=== PATIENT | male | born 1975 | race African-American/Black ===

== ENCOUNTER 2020-03-13 10:50 | Inpatient (IN) | payer OTHER ==
[~2020-03-13] VITALS: Ht 190.5 cm; Wt 113.4 kg
[2020-03-13 10:55] VITALS: BP 146/90
[2020-03-13 12:04] LABS: BASOPHILS 0.2 % (0.0-2.0); EOSINOPHILS 0.2 % (0.0-3.0); HEMATOCRIT 43.6 % (42.0-52.0); HEMOGLOBIN 14.6 gm/dL (14.0-18.0); MCH 30.5 pg (26.0-34.0); MCHC 33.6 g/dL (28.0-37.0); MCV 90.8 fL (80.0-100.0); MONOCYTES 8.9 % (1.0-8.0); PLATELET COUNT 227 thou/uL (150-400); POLYS 86.7 % (36.0-66.0); RBC 4.79 mil/uL (4.50-6.00); RDW 13.4 % (10.5-14.5); WBC 10.4 thou/uL (4.0-11.0)
[2020-03-13 12:06] LABS: CALCIUM 8.8 mg/dL (8.5-10.1); CREATININE 1.3 mg/dL (0.7-1.3); POTASSIUM 3.8 mmol/L (3.5-5.1)
[2020-03-13 12:12] LABS: ALBUMIN 2.8 g/dL (3.4-5.0); TOTAL BILIRUBIN 0.7 mg/dL (0.2-1.0); TOTAL PROTEIN 8.4 g/dL (6.4-8.2)
[2020-03-13 12:15] LABS: D-DIMER 1.51 ug/mLFEU (0.19-0.50); PROTIME 10.7 Seconds (9.3-11.4)
[2020-03-13 14:27] LABS: URINE BLOOD 1+ (Negative); URINE CLARITY CLEAR; URINE COLOR YELLOW; URINE GLUCOSE-RANDOM* 1+ (Negative); URINE KETONES NEGATIVE (Negative); URINE LEUKOCYTES-REFLEX TRACE (Negative); URINE NITRITE-REFLEX NEGATIVE (Negative); URINE PROTEIN (DIPSTICK) 2+ (Negative); URINE SPECIFIC GRAVITY 1.025 (1.005-1.035); URINE UROBILINOGEN >= 8.0 E.U./dl (0.2-1.0)
[2020-03-13 14:31] LABS: ICTOTEST (BILI CONFIRMATORY) Negative (Negative); URINE BILIRUBIN NEGATIVE (Negative)
[2020-03-13 14:35] LABS: AMP/METHAMP POSITIVE (Negative); BARBITURATES Negative (Negative); BENZODIAZEPINES Negative (Negative); COCAINE Negative (Negative); METHADONE Negative (Negative); OPIATES Negative (Negative); PCP Negative (Negative)
[2020-03-13 14:38] LABS: CASTS None Seen /LPF (None Seen); SQUAMOUS 4-10 Moderate /LPF (0-3)
[2020-03-13 14:39] LABS: BACTERIA-REFLEX None Seen /HPF (None Seen); URINE RBC 3-10 Few /HPF (0-2); URINE WBC-REFLEX 6-15 Few /HPF (0-5)
[2020-03-13 14:50] VITALS: BP 128/78
[2020-03-13 16:52] VITALS: BP 156/92
[2020-03-13 17:40] VITALS: BP 140/89
--- NOTE | 2020-03-13 18:42 | NUR ---
PT RECEIVED FROM THE ER AT 1515 ALERT AND IN SOME GENERALIZED DISCOMFORT. PT ASSESSED AND ORIENTED TO THE UNIT AND ROOM. GIRLFRIEND AT BEDSIDE. TYLENOL GIVEN FOR C/O BAD HEADACHE. LEG DSNGS IN PLACE FROM THE ER. CULTURE SENT PER ANIMATION DIRECTOR REPORT. WOUND CONSULT DONE AND PT SEEN IN THE ER. IV ANTIBIOICS GIVEN PER SCHEDULE. TEMP 100.5 AX.
[2020-03-14 05:26] VITALS: BP 114/74
--- NOTE | 2020-03-14 05:31 | NUR ---
REIEVED CARE OF THIS PATIENT AT 1900. PATIENT ALERT AND ORIENTED X4. PATIENT HAS DRESSING ON R LOWER EXT. DRESSING INTACT. HAS ROAD RASH ON L UPPER EXT. TEMP WAS 100.5 BEFORE SHIFT STARTED. TAKEN P2ATBMD. THIS AM WAS 98.6. IV PATENT IN RAC. UP AD MADISON. DENIES PAIN. SLEPT MOST OF NIGHT.
[2020-03-14 08:06] LABS: HEMATOCRIT 38.3 % (42.0-52.0); HEMOGLOBIN 12.8 gm/dL (14.0-18.0); MCH 30.5 pg (26.0-34.0); MCHC 33.4 g/dL (28.0-37.0); MCV 91.2 fL (80.0-100.0); RBC 4.2 mil/uL (4.50-6.00); RDW 13.8 % (10.5-14.5); WBC 9.6 thou/uL (4.0-11.0)
[2020-03-14 08:15] LABS: CALCIUM 8.4 mg/dL (8.5-10.1); POTASSIUM 3.4 mmol/L (3.5-5.1)
[2020-03-14 08:30] VITALS: BP 128/80
[2020-03-14 16:20] VITALS: BP 127/70
--- NOTE | 2020-03-14 17:53 | NUR ---
PT ASSESSED AT START OF SHIFT. PT STATES HE'S NOT FEELING ANY BETTER TODAY BUT REDDNESS IS BETTER ON LEG AND NO FEVERS OVERNOC OR TODAY. DR. AVILES SAW PT THIS AFTERNOON IN CONSULT. LEGS ELEVATED. UP ONLY TO GO TO THE BATHROOM. EATING AND DRINKING WELL.
[2020-03-14 20:15] VITALS: BP 137/70
[2020-03-15 04:44] VITALS: BP 123/75
--- NOTE | 2020-03-15 05:41 | NUR ---
RECIEVED CARE OF THIS PATIENT AT 1900. PATIENT ALERT AND ORIENTED X4. C/O PAIN BUT REFUSES PAIN MED. DRESSING ON R LOWER EXT NEEDS CHANGING BUT PATIENT REFUSES. PATIENT UP AND ABOUT.SLEPT MOST OF NIGHT.
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
[2020-03-15 10:30] VITALS: BP 135/85
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
[2020-03-15 18:21] VITALS: BP 136/75
--- NOTE | 2020-03-15 18:59 | NUR ---
PT IS AOX4, VSS, PAIN CONTROLLED WITH ORAL ANALGESIC. PT IV PATENT WITH IV ANTIBIOTIC THERAPY. PT UP AD MADISON TO RESTROOM, CALLS APPROPRIATELY. CALL LIGHT IN REACH. RLE, ELEVATED ON PILLOWS. WILL CONTINUE TO MONITOR.
[2020-03-15 20:39] VITALS: BP 118/58
--- NOTE | 2020-03-16 05:52 | NUR ---
RECIEVED CARE OF THIS PATIENT AT 1900. PATIENT ALERT AND ORIENTED X4. HAS HEALING ROAD RASH ON L ARM. DRESSING ON R LOWER EXT D/I WITH AN KAMI WRAP. C/O PAIN, MED GIVEN. UP AD MADISON IN ROOM. SLEPT MOST OF NIGHT.
[2020-03-16 07:30] VITALS: BP 119/74
[2020-03-16 17:10] VITALS: BP 119/74
--- NOTE | 2020-03-16 17:41 | NUR ---
PT IS AOX4, VSS, NO C/O PAIN IN RLE AT THIS TIME. PT RLE ELEVATED ON PILLOW, UP AD MADISON TO BATHROOM. CALL LIGHT IN REACH, WILL CONTINUE TO MONITOR.
[2020-03-16 21:26] VITALS: BP 127/79
--- NOTE | 2020-03-17 04:41 | NUR ---
ASSESSED AT START OF SHIFT. PT A&OX4. DENIES NEED FOR PAIN MEDS. RT FOOT DRESSING C/D/I. IV INTACT AND ABX GIVEN. PT UP AD MADISON TO THE BATHRROM. CALL LIGHT IN REACH AND NO FURTHER SIGNS OF DISCOMFORT WILL CONT TO MONITOR.
[2020-03-17 11:30] VITALS: BP 141/76
--- NOTE | 2020-03-17 14:15 | NUR ---
ON-GOING ASSESSMENT: CM REVIEWED CHART. PT REMAINS ON IV ANBX. PT HAS NO INSURANCE AND HX OF DRUG ABUSE. AWAITING FURTHER RECOMMENDATIONS FOR LENGTH OF ANTIBIOTIC NEED. CM WILL CONTINUE TO FOLLOW.
--- NOTE | 2020-03-17 19:21 | NUR ---
PT IS AOX4, VSS, BLE DRESSING CDI. PT DENIES PAIN AT THIS TIME. CALL LIGHT IN REACH. WILL CONTINUE TO MONITOR.
[2020-03-17 19:59] VITALS: BP 113/64
--- NOTE | 2020-03-18 01:39 | NUR ---
ASSUMED PT CARE AT 1900. PT SLEEPS MOST THE TIME. GETTING FRUSTRATED WITH THE CONSTANT IV ANTIBIOTICS, WANTING TO GO HOME. DRESSING CHANGE DONE DUE TO DR AVILES WANTING TO SEE THE WOUND, BOTH PT AND DR REPORT THAT THE WOUND HAS GREATLY IMPROVED. RIGHT LEG DOES HAVE SOME SWELLING STILL. PT REPORTS NO PAIN ALTHOUGH HE MOANS WHEN HIS LEG IS TOUCHED. WILL CONTINUE TO MONITOR.
[2020-03-18 06:47] LABS: HEMATOCRIT 38.3 % (42.0-52.0); HEMOGLOBIN 12.8 gm/dL (14.0-18.0); MCH 30.7 pg (26.0-34.0); MCHC 33.4 g/dL (28.0-37.0); RBC 4.17 mil/uL (4.50-6.00); RDW 13.8 % (10.5-14.5); WBC 11.6 thou/uL (4.0-11.0)
[2020-03-18 06:56] LABS: CALCIUM 8.9 mg/dL (8.5-10.1); MAGNESIUM 2.1 mg/dL (1.8-2.4); POTASSIUM 3.9 mmol/L (3.5-5.1)
[2020-03-18 07:45] VITALS: BP 136/81
--- NOTE | 2020-03-18 15:46 | NUR ---
ON-GOING ASSESSMENT: PT REMAINS ON IV ANBX. CM SPOKE WITH ATTENDING WHO REPORTS PT MAY BE TRANSITIONED TO ORAL MEDICATIONS SOON. PT HAS NO INSURANCE AND HX OF DRUG USE. CM WILL CONTINUE TO FOLLOW.
[2020-03-18 16:00] VITALS: BP 145/80
--- NOTE | 2020-03-18 18:30 | NUR ---
PT ASSESSED AT START OF SHIFT. UP AD MADISON IN ROOM. EATING AND DRINKING WELL. NO C/O PAIN. DR. BARKER IN THIS AFTERNOON AND CHANGED PT DSNG. NASAL SWAB POSITIVE FOR MRSA CALLED TO DR. AVILES. POSSIBLE HOME TOMORROW.
[2020-03-18 19:35] VITALS: BP 146/72
--- NOTE | 2020-03-19 03:32 | NUR ---
RECEIVED CARE OF THIS PATIENT AT 1900. PATIENT ALERT AND ORIENTED X4. PATIENT UP IN ROOM. C/O H/A, TYLENOL GIVEN WITH GOOD RESULTS. DRESSING ON R LOWER EXT INTACT. SLEPT MOST OF NIGHT.
[2020-03-19 05:04] VITALS: BP 145/91
[2020-03-19 09:00] VITALS: BP 151/97
--- NOTE | 2020-03-19 09:45 | NUR ---
Assumed care of pt at 0700. Pt a&ox4. Denies pain. Flat affect. IV antibiotics infusing. Dressing changed. Awaiting recommendation from ID for pt discharge. Call light within reach. Will continue to monitor.
--- NOTE | 2020-03-19 15:31 | NUR ---
ON-GOING ASSESSMENT: CM AWAITING FINAL RECS FROM ID PATIENT IS CURRENTLY ON IV ANBX BUT HAS NO INSURANCE AND HAS A HX OF METH USE. CM DISCUSSED WITH ATTENDING AND AWAITING RECS FROM ID IF PATIENT CAN TRANSITION TO ORAL ANBX. PT WAS ALREADY GIVEN A RESOURCE PACKET.
[2020-03-19] MEDS ORDERED: AUGMENTIN 875-1 EACH PO (16:12)
[2020-03-19] MEDS ORDERED: PROBIOTIC1 EAC6 PO (16:12)
[2020-03-19] MEDS ORDERED: TYLENOL325 MG PO (16:12)
[2020-03-19 16:22] VITALS: BP 109/58
[2020-03-19 16:30] VITALS: BP 151/97
== END 2020-03-19 17:35 | disposition home or self-care (01) | DRG 871 ==
LOC: ER 10:50 → EROBS 14:21 → 4S 17:10
PROVIDERS: Emergency Medicine; Internal Medicine; ADMIT Hospitalist; ATTEND Hospitalist
DX: A41.9 Sepsis, unspecified organism (principal); G92 Toxic encephalopathy; L03.115 Cellulitis of right lower limb; F15.921 Other stimulant use, unspecified with intoxication delirium; E44.0 Moderate protein-calorie malnutrition; R73.9 Hyperglycemia, unspecified; E88.09 Other disorders of plasma-protein metabolism, not elsewhere classified; F12.10 Cannabis abuse, uncomplicated; B95.0 Streptococcus, group A, as the cause of diseases classified elsewhere; E66.01 Morbid (severe) obesity due to excess calories; B95.61 Methicillin susceptible Staphylococcus aureus infection as the cause of diseases classified elsewhere; S80.812A Abrasion, left lower leg, initial encounter; S80.821A Blister (nonthermal), right lower leg, initial encounter; E87.6 Hypokalemia; V29.88XA Motorcycle rider (driver) (passenger) injured in other specified transport accidents, initial encounter; Y93.89 Activity, other specified; Y92.89 Other specified places as the place of occurrence of the external cause; Y99.8 Other external cause status; Z68.31 Body mass index [BMI] 31.0-31.9, adult; Z71.51 Drug abuse counseling and surveillance of drug abuser; Z79.899 Other long term (current) drug therapy
CPT/HCPCS: 10100; 10195